=== PATIENT | male | born 1960 | race Caucasian/White ===

== ENCOUNTER 2020-11-12 11:01 | Inpatient (IN) ==
[2020-11-12] MEDS ORDERED: Furosemide 40 MG/4 ML VIAL IVP ONE (11:23)
[2020-11-12] MEDS ORDERED: Nitroglycerin 0.4 MG TAB.SUBL SL STA (11:23)
[2020-11-12 11:47] LABS: Basophils % 0.5 %; Eosinophils % 0.1 %; Hematocrit 53.4 % (37.5-50.1); Immature Granulocytes % 0.4 % (0-4); Lymphocytes % 11.5 %; Mean Corpuscular HGB Conc 31.8 g/dL (31.6-35.5); Mean Corpuscular Hemoglobin 30.4 pg (28.0-33.3); Mean Corpuscular Volume 95.4 fL (83.0-100.0); Mean Platelet Volume 10.8 fL (9.4-12.4); Monocytes # 0.8 K/mcL (0.0-1.3); Monocytes % 9.9 %; Neutrophils # 6.5 K/mcL (1.6-8.9); Platelet Count 210 K/mcL (140-400); Red Cell Distribution Width 14.3 % (11.5-14.5); Segmented Neutrophils % 77.6 %; White Blood Count 8.3 K/mcL (4.3-11.1)
[2020-11-12] MEDS ORDERED: Ipratropium/Albuterol Neb 3 ML IH ONE (11:49)
[2020-11-12 12:11] LABS: BUN/Creatinine Ratio 25 (6-26); Blood Urea Nitrogen 23 mg/dL (8-23); Calcium 9.1 mg/dL (8.6-10.3); Carbon Dioxide 41 mEq/L (23-29); Chloride 91 mEq/L (98-107); Glucose 137 mg/dL (70-105); Osmolality,Calculated 290 (280-300); Potassium 3.6 mEq/L (3.5-5.1); Sodium 137 mEq/L (136-145); Troponin I 0.07 ng/mL (< 0.04); eGFR For African Americans > 60 (> 60); eGFR For Non-African Americans > 60 (> 60)
[2020-11-12 13:40] LABS: VBG HCO3 41 mEq/L (21-27); VBG PCO2 47 mmHg (41-51); VBG PH 7.54 pH Units (7.32-7.42); VBG PO2 203 mmHg (25-50)
[2020-11-12] MEDS ORDERED: *HR* HYDROcodone/Acet 5/325 mg TABLET PO PRN (13:48)
[2020-11-12] MEDS ORDERED: Ondansetron 4 MG/2 ML VIAL IVP PRN (13:48)
[2020-11-12] MEDS ORDERED: Naloxone 0.4 MG/ML INJ IVP PRN (13:48)
[2020-11-12] MEDS ORDERED: Perflutren Lipid Microsphere 1.3 ML in 0.9 % Sodium Chloride 8.7 ML IVP PRN (14:47)
[2020-11-12] MEDS: Ipratropium/Albuterol Neb 3 ML IH SCH ×3 (16:04→23:50)
[2020-11-12] MEDS ORDERED: *HR* Heparin 5,000 UNIT/ML VIAL SQ SCH (18:00)
[2020-11-12] MEDS ORDERED: Isovue-370 500 ML BOTTLE IVP ONE (18:37)
[2020-11-12] MEDS: Budesonide/Formoterol 160/4.5 1 PUFF INH IH SCH (19:57)
[2020-11-12] MEDS ORDERED: Furosemide 40 MG/4 ML VIAL IVP SCH (21:00)
[2020-11-13] MEDS ORDERED: *HR* Heparin 5,000 UNIT/ML VIAL IVP PRN ×2 (01:17)
[2020-11-13] MEDS ORDERED: *HR* Heparin 5,000 UNIT/ML VIAL IVP ONE (01:17)
[2020-11-13] MEDS: Heparin 25,000UNIT/250ML 1/2NS 25,000 UNIT/250 ML IV.SOLN IVC SCH ×2 (01:52→18:35)
[2020-11-13 02:20] LABS: Basophils % 0.5 %; Eosinophils # 0.1 K/mcL (0.0-0.6); Eosinophils % 0.9 %; Hematocrit 51.7 % (37.5-50.1); Hemoglobin 15.5 g/dL (12.9-16.9); Immature Granulocytes % 0.3 % (0-4); Lymphocytes % 12.9 %; Mean Corpuscular Hemoglobin 29.4 pg (28.0-33.3); Mean Corpuscular Volume 98.1 fL (83.0-100.0); Mean Platelet Volume 10.9 fL (9.4-12.4); Monocytes # 0.7 K/mcL (0.0-1.3); Monocytes % 8.9 %; Neutrophils # 5.7 K/mcL (1.6-8.9); Platelet Count 158 K/mcL (140-400); Red Blood Count 5.27 M/mcL (4.19-5.50); Red Cell Distribution Width 14.4 % (11.5-14.5); Segmented Neutrophils % 76.5 %; White Blood Count 7.4 K/mcL (4.3-11.1)
[2020-11-13 02:31] LABS: Heparin anti-factor XA UFH < 0.04 IU/mL (0.30-0.70); INR 1.2; Prothrombin Time 14.1 Seconds (9.4-12.1)
[2020-11-13 02:34] LABS: Activated Partial Thrombo Time 24.7 Seconds (26.0-36.0)
[2020-11-13 02:46] LABS: Alanine Aminotransferase 104 Units/L (7-52); Albumin 3.3 g/dL (3.5-5.7); Albumin/Globulin Ratio 0.9 (1.1-2.2); Alkaline Phosphatase 41 Units/L (34-104); Aspartate Amino Transferase 49 Units/L (13-39); BUN/Creatinine Ratio 21 (6-26); Bilirubin,Total 0.8 mg/dL (0.3-1.0); Blood Urea Nitrogen 20 mg/dL (8-23); Calcium 8.3 mg/dL (8.6-10.3); Carbon Dioxide 41 mEq/L (23-29); Chloride 94 mEq/L (98-107); Globulin 3.6 g/dL (2.4-3.5); Glucose 90 mg/dL (70-105); Osmolality,Calculated 288 (280-300); Phosphorous 4.5 mg/dL (2.7-4.5); Potassium 3.7 mEq/L (3.5-5.1); Sodium 138 mEq/L (136-145); Total Protein 6.9 g/dL (6.4-8.9); eGFR For African Americans > 60 (> 60); eGFR For Non-African Americans > 60 (> 60)
[2020-11-13] MEDS: Ipratropium/Albuterol Neb 3 ML IH SCH ×6 (04:35→23:26)
[2020-11-13] MEDS: Budesonide/Formoterol 160/4.5 1 PUFF INH IH SCH ×2 (07:58→19:21)
[2020-11-13] MEDS: Metoprolol XL (24 HR) Succ 25 MG TAB.ER.24H PO SCH (08:30)
[2020-11-13] MEDS: Aspirin Enteric Coated 81 MG Tablet PO SCH (08:30)
[2020-11-13] MEDS ORDERED: Furosemide 40 MG/4 ML VIAL IVP SCH (09:00)
[2020-11-13 12:58] LABS: ABG Base Excess 19 mEq/L (-2 to 3); ABG HCO3 49 mEq/L (21-27); ABG Oxygen Saturation 86 % (95-98); ABG PCO2 71 mmHg (35-45); ABG PH 7.45 pH Units (7.32-7.45); ABG PO2 53 mmHg (85-104); ABG TCO2 > 50 mEq/L (20-26)
[2020-11-14] MEDS ORDERED: Saline Nasal Spray 44 ML BOTTLE NS PRN (00:29)
[2020-11-14] MEDS: Ipratropium/Albuterol Neb 3 ML IH SCH ×6 (03:45→23:19)
[2020-11-14 05:52] LABS: Alanine Aminotransferase 71 Units/L (7-52); Albumin 3.2 g/dL (3.5-5.7); Alkaline Phosphatase 40 Units/L (34-104); Aspartate Amino Transferase 35 Units/L (13-39); BUN/Creatinine Ratio 26 (6-26); Bilirubin,Direct 0.3 mg/dL (0.0-0.2); Bilirubin,Indirect 0.5 mg/dL (0.0-1.0); Bilirubin,Total 0.8 mg/dL (0.3-1.0); Blood Urea Nitrogen 22 mg/dL (8-23); Calcium 8.5 mg/dL (8.6-10.3); Carbon Dioxide 44 mEq/L (23-29); Chloride 92 mEq/L (98-107); Globulin 3.2 g/dL (2.4-3.5); Glucose 106 mg/dL (70-105); Osmolality,Calculated 290 (280-300); Potassium 3.6 mEq/L (3.5-5.1); Sodium 138 mEq/L (136-145); Total Protein 6.4 g/dL (6.4-8.9); eGFR For African Americans > 60 (> 60); eGFR For Non-African Americans > 60 (> 60)
[2020-11-14] MEDS: Budesonide/Formoterol 160/4.5 1 PUFF INH IH SCH ×2 (07:29→20:36)
[2020-11-14] MEDS: Nicotine 14 MG PATCH.TD24 TD SCH (09:01)
[2020-11-14] MEDS: Aspirin Enteric Coated 81 MG Tablet PO SCH (09:01)
[2020-11-14] MEDS: Metoprolol XL (24 HR) Succ 25 MG TAB.ER.24H PO SCH (09:01)
[2020-11-14] MEDS: Azithromycin 250 MG TABLET PO SCH (10:53)
[2020-11-14] MEDS: *HR* Rivaroxaban 15 MG TABLET PO SCH ×2 (10:53→20:07)
[2020-11-14] MEDS: predniSONE 20 MG TABLET PO SCH (10:53)
[2020-11-14] MEDS: Furosemide 20 MG/2 ML VIAL IVP SCH (18:57)
[2020-11-15] MEDS: Ipratropium/Albuterol Neb 3 ML IH SCH ×6 (04:01→23:24)
[2020-11-15] MEDS: Budesonide/Formoterol 160/4.5 1 PUFF INH IH SCH ×2 (07:31→23:24)
[2020-11-15] MEDS: Nicotine 14 MG PATCH.TD24 TD SCH (10:40)
[2020-11-15] MEDS: Furosemide 20 MG/2 ML VIAL IVP SCH ×2 (11:12→19:03)
[2020-11-15] MEDS: Metoprolol XL (24 HR) Succ 25 MG TAB.ER.24H PO SCH (11:13)
[2020-11-15] MEDS: Aspirin Enteric Coated 81 MG Tablet PO SCH (11:13)
[2020-11-15] MEDS: Azithromycin 250 MG TABLET PO SCH (11:13)
[2020-11-15] MEDS: predniSONE 20 MG TABLET PO SCH (11:13)
[2020-11-15] MEDS: *HR* Rivaroxaban 15 MG TABLET PO SCH ×2 (11:13→20:24)
[2020-11-15] MEDS: MethylPREDNISolone 40 MG/ML VIAL IVP SCH (19:02)
[2020-11-16] MEDS: Ipratropium/Albuterol Neb 3 ML IH SCH ×6 (03:35→23:15)
[2020-11-16 03:51] LABS: BUN/Creatinine Ratio 34 (6-26); Blood Urea Nitrogen 23 mg/dL (8-23); Calcium 8.8 mg/dL (8.6-10.3); Carbon Dioxide 40 mEq/L (23-29); Chloride 98 mEq/L (98-107); Glucose 148 mg/dL (70-105); Magnesium 2.3 mg/dL (1.6-2.6); Osmolality,Calculated 296 (280-300); Phosphorous 2.7 mg/dL (2.7-4.5); Potassium 4.5 mEq/L (3.5-5.1); Sodium 140 mEq/L (136-145); eGFR For African Americans > 60 (> 60); eGFR For Non-African Americans > 60 (> 60)
[2020-11-16] MEDS: MethylPREDNISolone 40 MG/ML VIAL IVP SCH ×2 (05:23→18:35)
[2020-11-16] MEDS: Budesonide/Formoterol 160/4.5 1 PUFF INH IH SCH ×2 (07:43→19:53)
[2020-11-16] MEDS: Aspirin Enteric Coated 81 MG Tablet PO SCH (08:40)
[2020-11-16] MEDS: Furosemide 20 MG/2 ML VIAL IVP SCH ×2 (08:40→18:35)
[2020-11-16] MEDS: Azithromycin 250 MG TABLET PO SCH (08:41)
[2020-11-16] MEDS: Nicotine 14 MG PATCH.TD24 TD SCH (08:41)
[2020-11-16] MEDS: *HR* Rivaroxaban 15 MG TABLET PO SCH ×2 (08:41→21:46)
[2020-11-16] MEDS: Metoprolol XL (24 HR) Succ 25 MG TAB.ER.24H PO SCH (08:41)
[2020-11-16 10:04] LABS: Adenovirus Not Detected (Not Detect); Bordetella Pertussis Not Detected (Not Detect); Chlamydophila pneumoniae Not Detected (Not Detect); Coronavirus 229E Not Detected (Not Detect); Coronavirus HKU1 Not Detected (Not Detect); Coronavirus NL63 Not Detected (Not Detect); Coronavirus OC43 Not Detected (Not Detect); Human Metapneumovirus Not Detected (Not Detect); Human Rhinovirus/Enterovirus DETECTED (Not Detect); Influenza A Subtype 2009 H1 Not Detected (Not Detect); Influenza B Not Detected (Not Detect); Mycoplasma pneumoniae Not Detected (Not Detect); Parainfluenza Virus 1 Not Detected (Not Detect); Parainfluenza Virus 2 Not Detected (Not Detect); Parainfluenza Virus 3 Not Detected (Not Detect); Parainfluenza Virus 4 Not Detected (Not Detect); Respiratory Syncytial Virus Not Detected (Not Detect); SARS-CoV-2 Not Detected (Not Detect)
[2020-11-16 11:40] LABS: ABG Base Excess 17 mEq/L (-2 to 3); ABG HCO3 47 mEq/L (21-27); ABG Oxygen Saturation 88 % (95-98); ABG PCO2 74 mmHg (35-45); ABG PH 7.41 pH Units (7.32-7.45); ABG PO2 58 mmHg (85-104); ABG TCO2 49 mEq/L (20-26)
[2020-11-17] MEDS: Ipratropium/Albuterol Neb 3 ML IH SCH ×6 (03:58→23:19)
[2020-11-17] MEDS: MethylPREDNISolone 40 MG/ML VIAL IVP SCH ×2 (05:18→17:41)
[2020-11-17] MEDS: Azithromycin 250 MG TABLET PO SCH (07:40)
[2020-11-17] MEDS: Aspirin Enteric Coated 81 MG Tablet PO SCH (07:40)
[2020-11-17] MEDS: Furosemide 20 MG/2 ML VIAL IVP SCH ×2 (07:40→17:41)
[2020-11-17] MEDS: Nicotine 14 MG PATCH.TD24 TD SCH (07:41)
[2020-11-17] MEDS: Metoprolol XL (24 HR) Succ 25 MG TAB.ER.24H PO SCH (07:41)
[2020-11-17] MEDS: *HR* Rivaroxaban 15 MG TABLET PO SCH ×2 (07:41→19:49)
[2020-11-17] MEDS: Budesonide/Formoterol 160/4.5 1 PUFF INH IH SCH ×2 (07:48→20:05)
[2020-11-18] MEDS: Ipratropium/Albuterol Neb 3 ML IH SCH ×4 (03:26→16:14)
[2020-11-18] MEDS: Furosemide 20 MG TABLET PO SCH ×3 (05:42→15:36)
[2020-11-18 06:01] LABS: Alanine Aminotransferase 43 Units/L (7-52); Albumin 3.2 g/dL (3.5-5.7); Albumin/Globulin Ratio 0.9 (1.1-2.2); Alkaline Phosphatase 36 Units/L (34-104); Aspartate Amino Transferase 24 Units/L (13-39); BUN/Creatinine Ratio 38 (6-26); Bilirubin,Total 0.6 mg/dL (0.3-1.0); Blood Urea Nitrogen 27 mg/dL (8-23); Calcium 9.1 mg/dL (8.6-10.3); Carbon Dioxide 40 mEq/L (23-29); Chloride 98 mEq/L (98-107); Globulin 3.5 g/dL (2.4-3.5); Glucose 133 mg/dL (70-105); Magnesium 2.4 mg/dL (1.6-2.6); Osmolality,Calculated 297 (280-300); Phosphorous 3.9 mg/dL (2.7-4.5); Potassium 4.5 mEq/L (3.5-5.1); Sodium 140 mEq/L (136-145); Total Protein 6.7 g/dL (6.4-8.9); eGFR For African Americans > 60 (> 60); eGFR For Non-African Americans > 60 (> 60)
[2020-11-18] MEDS: Budesonide/Formoterol 160/4.5 1 PUFF INH IH SCH (07:29)
[2020-11-18] MEDS: *HR* Rivaroxaban 15 MG TABLET PO SCH (08:52)
[2020-11-18] MEDS: Metoprolol XL (24 HR) Succ 25 MG TAB.ER.24H PO SCH (08:52)
[2020-11-18] MEDS: Aspirin Enteric Coated 81 MG Tablet PO SCH (08:52)
[2020-11-18] MEDS: Azithromycin 250 MG TABLET PO SCH (08:52)
[2020-11-18] MEDS: Nicotine 14 MG PATCH.TD24 TD SCH (08:52)
[2020-11-18] MEDS ORDERED: predniSONE 20 MG TABLET PO SCH (09:00)
[2020-11-18 10:46] VITALS: BP 117/72
== END 2020-11-18 17:50 | disposition home or self-care (01) | DRG 280 ==
LOC: CDU 11:01 → EMEROOARM 11:01 → SUATTDRO 14:31 → CDU 15:39 → SUATTDRO 11-13 19:05 → 3BNU 11-14 15:53
PROVIDERS: ADMIT Internal Medicine; ATTEND Internal Medicine